=== PATIENT | female | born 2000 | race Caucasian/White ===

== ENCOUNTER → 2020-04-27 | Outpatient (CLI) | payer BC ==
[~2020-04-27] MED LIST: NORE-87 PO
== END ==
LOC: LAB 14:15
PROVIDERS: ATTEND Internal Medicine Gastroenterology
DX: Z01.812 Encounter for preprocedural laboratory examination (principal); Z20.828 Contact with and (suspected) exposure to other viral communicable diseases
CPT/HCPCS: U0003

== ENCOUNTER → 2020-04-30 | Day surgery (SDC) | payer BC ==
[~2020-04-30] MED LIST changes: +IV RINGERS,LACTATED 1000ML 1,000 ML IV SCH; +LIDOCAINE 2% PF 5 ML VIAL. ONE; +PROPOFOL 10 MG/ML (20ML) VIAL. IV ONE
[2020-04-30 10:28] VITALS: BP 119/71
--- NOTE | 2020-05-05 15:08 | PATHOLOGY ---
[facility] Accession Number: [id number] . 01 Material submitted: . PART A: small bowel - SMALL BOWEL BIOPSY PART B: stomach - ANTRUM BIOPSY PART C: esophagus - DISTAL ESOPHAGUS BIOPSY. Modifiers: distal PART D: esophagus - MID ESOPHAGUS BIOPSY. Modifiers: mid PART E: ileum - TERMINAL ILEUM PART F: colon - RIGHT COLON BIOPSY. Modifiers: right PART G: colon - LEFT COLON BIOPSY. Modifiers: left . 01 Clinical history: . ABD PAIN, RECTAL BLEED . 02 Diagnosis: A. Small bowel biopsies: - No significant pathologic abnormalities. . B. Gastric biopsies, antrum: - Chronic gastritis, mild. . C. Esophageal biopsies, distal esophagus: - Segments of hyperplastic squamous esophageal mucosa with contiguous and separate segments of gastric mucosa showing chronic inflammation, consistent with reflux esophagitis. . D. Esophageal biopsies, middle esophagus: - Segments of squamous esophageal mucosa showing no significant pathologic abnormalities. . E. Terminal ileum biopsies: - Small intestine mucosa with prominent mucosa-associated lymphoid tissue showing reactive changes; no evidence of active ileitis. See comment. . F. Colonic mucosa, right colon biopsies: - No significant pathologic abnormalities. . G. Colonic mucosa, left colon biopsies: - No significant pathologic abnormalities. . (JPM:mml/jt; 05/04/2020) [facility] 05/05/2020 1406 Local . 02 Comment: Sections of the upper GI endoscopic small bowel biopsy reveal segments of duodenal and small intestine mucosa. Where best oriented, the mucosal villi show no sprue-like changes or significant inflammatory changes. . Sections of the gastric biopsy reveal segments of gastric antral and gastric body mucosa. The latter shows superficial congestion and mild chronic inflammation. The antral mucosa shows congestion and mild chronic inflammation. A properly-controlled immunoperoxidase stain for Helicobacter is negative for Helicobacter organisms. . Sections of the distal esophageal biopsy reveal segments of hyperplastic squamous esophageal mucosa with contiguous and separate segments of gastric mucosa showing focal chronic inflammation. The findings are consistent with reflux esophagitis. There is no evidence of Ortiz's change, dysplasia, or malignancy. . Sections of the middle esophageal biopsy reveal segments of squamous esophageal mucosa showing no significant pathologic abnormalities. . Sections of the terminal ileum biopsy reveal segments of small intestine mucosa with prominent mucosal-associated lymphoid tissue showing reactive changes. There is no evidence of active ileitis. The prominent reactive appearing lymphoid aggregates are compatible with Peyer's patches. Clinical and endoscopic correlation is required. This biopsy is also reviewed by Dr. Sanchez, who concurs with the diagnosis. . Sections of the right colon and left colon biopsies reveal multiple segments of colonic mucosa. There is no evidence of a chronic destructive colitis, lymphocytic colitis, or collagenous colitis. . Special stain: Immunoperoxidase stain for Helicobacter on B1. . (JPM:mml/jt; 05/04/2020) . 02 Electronically signed: . Jerry Paredes MD, Pathologist NPI- [id number] . 01 Gross description: . A. Received in formalin labeled "Chung, Roma, small bowel BX" are multiple martinez-brown soft tissue fragments measuring in aggregate 1.0 x 0.4 x 0.1 cm. The specimen is submitted entirely in A1. . B. Received in formalin labeled "Chung, Roma, antrum BX" are multiple martinez-brown soft tissue fragments measuring in aggregate 0.8 x 0.6 x 0.1 cm. The specimen is submitted entirely in B1. . C. Received in formalin labeled "Chung, Roma, distal esophagus BX" are multiple martinez-brown soft tissue fragments measuring in aggregate 0.5 x 0.5 x 0.1 cm. The specimen is submitted entirely in C1. . D. Received in formalin labeled "Chung, Roma, mid esophagus BX" are multiple martinez-brown soft tissue fragments measuring in aggregate 0.5 x 0.2 x 0.1 cm. The specimen is submitted entirely in D1. . E. Received in formalin labeled "Chung, Roma, terminal ileum BX" are multiple martinez-brown soft tissue fragments measuring in aggregate 0.7 x 0.5 x 0.1 cm. The specimen is submitted entirely in E1. . F. Received in formalin labeled "Chung, Roma, right colon BX" are multiple martinez-brown soft tissue fragments measuring in aggregate 1.2 x 0.6 x 0.1 cm. The specimen is submitted entirely in F1. . G. Received in formalin labeled "Roma Wilkes, left colon BX" are multiple martinez-brown soft tissue fragments measuring in aggregate 1.0 x 0.5 x 0.1 cm. The specimen is submitted entirely in G1. ([facility] [place]; 05/02/2020) [facility] 05/04/2020 1533 Local . 02 Pathologist provided ICD-10: K29.50, K20.90, R10.9, K92.1 . 02 CPT . 826475, 612503, [id number], [id number], [id number], [id number], [id number] Specimen Comment: A courtesy copy of this report has been sent to [phone], [phone] Specimen Comment: [id number] Specimen Comment: Report sent to / DR MA Performed at: 01 [facility] [address] [facility] [address], [place] [id number] MD Dayne Shipman MD Phone: [phone] Performed at: 02 [facility] [address] [place], [place] [id number] MD Jerry Paredes MD Phone: [phone]
== END | disposition home or self-care (01) ==
LOC: ENDOS 07:59
PROVIDERS: ATTEND Internal Medicine Gastroenterology
DX: K62.5 Hemorrhage of anus and rectum (principal); K64.0 First degree hemorrhoids; R13.10 Dysphagia, unspecified; R10.13 Epigastric pain; K63.89 Other specified diseases of intestine; K29.70 Gastritis, unspecified, without bleeding; K21.00 Gastro-esophageal reflux disease with esophagitis, without bleeding; K31.89 Other diseases of stomach and duodenum; K21.9 Gastro-esophageal reflux disease without esophagitis; Z79.899 Other long term (current) drug therapy; Z98.890 Other specified postprocedural states
CPT/HCPCS: 43239; 43450; 45380; 81025; J2704; 88305; 88342